=== PATIENT | female | born 1960 | race Caucasian/White ===

== ENCOUNTER 2018-12-08 18:02 | Inpatient (IN) | payer MEDICARE, MEDICAID ==
[~2018-12-08] VITALS: Ht 160 cm; Wt 46.7 kg
[2018-12-08] MEDS ORDERED: LORAZEPAM 0.5 MG TABLET PO PRN (18:30)
[2018-12-08] MEDS ORDERED: MAGNESIUM HYDROXIDE 30 ML UDC PO PRN (18:30)
[2018-12-08] MEDS ORDERED: MAG HYDROX/AL HYDROX/SIMETH 30 ML UDC PO PRN (18:30)
[2018-12-08 18:33] VITALS: BP 116/86
--- NOTE | 2018-12-08 18:49 | NUR ---
Pt. arrived in the unit via ambulance and transported via a gurney. Pt.on 5150 for DTS and GD, pt. is alert/ oriented x3, responsive to staff and cooperative. V/S taken, contraband done and Dr. Guillaume made aware of the admission and gave orders. Will endorse to the incoming nurse for the completion of the admission.
[2018-12-08 20:00] VITALS: BP 151/72
[2018-12-09] MEDS ORDERED: DOCU100C36 PO (00:31)
[2018-12-09] MEDS ORDERED: ALPR2TAB7 PO (00:31)
[2018-12-09] MEDS ORDERED: IBUP-1957 PO (00:31)
[2018-12-09] MEDS ORDERED: VENL150C2 PO (00:31)
[2018-12-09 08:00] VITALS: BP 149/70
[2018-12-09] MEDS ORDERED: TRAZ-214 PO (08:35)
[2018-12-09] MEDS ORDERED: ONDA4TAB5 PO (08:35)
[2018-12-09] MEDS ORDERED: GUAI5SYR4 PO (08:35)
[2018-12-09] MEDS ORDERED: ALBU18HF2 INH (08:35)
[2018-12-09 09:34] LABS: ALBUMIN 3.1 g/dL (3.4-5.0); BILIRUBIN,TOTAL 0.7 mg/dL (0.2-1.0); CALCIUM, SERUM 8.6 mg/dL (8.5-10.1); CREATININE 0.8 mg/dL (0.6-1.3); POTASSIUM 2.9 mmol/L (3.5-5.1); TOTAL PROTEIN, SERUM 6.6 g/dL (6.4-8.2)
[2018-12-09 09:43] LABS: CHOLESTEROL 191 mg/dL (<200); HDL CHOLESTEROL 71 mg/dL (40-60); LDL 104 mg/dL (0-99); TRIGLYCERIDES 72 mg/dL (30-150)
--- NOTE | 2018-12-09 10:01 | NUR ---
GPS RN NOTE: NOTIFIED ST[employer] SHOP MECHANIC REGARDING THE RESULT OF POTASSIUM = 2.9, V/S WNL, NO SOB, NO ACUTE DISTRESS, BREATHING EVEN AND UNLABORED, PATIENT ATE BREAKFAST, NO ORDER RECEIVED AT THIS TIME. WILL CONTINUE TO MONITOR [id number] FOR SAFETY
--- NOTE | 2018-12-09 10:04 | NUR ---
GPS RN NOTE: K[facility] ORDER RECEIVED NOTED AND CARRIED OUT.
[2018-12-09] MEDS: POTASSIUM CHLORIDE 10 MEQ TABLET.SA PO SCH ×3 (10:27→12:01)
[2018-12-09] MEDS ORDERED: IBUPROFEN 400 MG TABLET PO PRN (10:30)
[2018-12-09] MEDS ORDERED: ALBUTEROL FS 2.5 MG/3 ML VIAL.NEB NEB PRN (13:30)
[2018-12-09 16:19] VITALS: BP 120/78
--- NOTE | 2018-12-09 16:21 | NUR ---
Initial Discharge Plan: Pt currently resides in her home located at [address] [place] [address] with her roommate. Per pt, she would like to return once she is discharged from the hospital. TALIB will work with the pt and the MD regarding appropriate discharge planning. SW will form a safe and proper discharge.
[2018-12-09] MEDS ORDERED: OLANZAPINE 2.5 MG TABLET PO SCH (17:00)
--- NOTE | 2018-12-09 17:00 | NUR ---
GPS RN NOTE: RECEIVED AN ORDER FROM DR. RIOS OF EKG NOTED AND CARRIED OUT
[2018-12-09] MEDS: DIVALPROEX SODIUM 125 MG CAP.SPRINK PO SCH (17:19)
--- NOTE | 2018-12-09 17:31 | NUR ---
GPS RN NOTE: RECEIVED THE RESULT OF EKG AND REPORTED TO DR. RIOS WITH NO ORDER GIVEN NOTED
[2018-12-09] MEDS ORDERED: ALPRAZOLAM 0.5 MG TABLET PO SCH (18:00)
[2018-12-09 20:00] VITALS: BP 137/70
[2018-12-09] MEDS: TEMAZEPAM 7.5 MG CAPSULE PO PRN (21:50)
[2018-12-09] MEDS: OLANZAPINE 2.5 MG TABLET PO SCH (21:50)
[2018-12-09] MEDS: ATORVASTATIN 40 MG TABLET PO SCH (21:55)
[2018-12-10 08:00] VITALS: BP 131/71
[2018-12-10] MEDS: DIVALPROEX SODIUM 125 MG CAP.SPRINK PO SCH ×3 (08:50→16:43)
[2018-12-10] MEDS: DOCUSATE SODIUM 100 MG CAPSULE PO SCH (08:50)
[2018-12-10] MEDS: ALPRAZOLAM 0.25 MG TABLET PO SCH ×2 (08:55→12:17)
[2018-12-10 16:00] VITALS: BP 131/79
[2018-12-10 16:04] LABS: APPEARANCE,URINE SL CLOUDY (CLEAR); BILIRUBIN,URINE NEGATIVE (NEGATIVE); BLOOD, URINE NEGATIVE Ery/uL (NEGATIVE); COLOR,URINE YELLOW (YELLOW); KETONES,URINE NEGATIVE (NEGATIVE); LEUKOCYTE ESTERASE ,URINE 1+ (NEGATIVE); NITRITE, URINE NEGATIVE (NEGATIVE); PH,URINE 8.5 (5.0-8.0); PROTEIN,URINE NEGATIVE (NEGATIVE); UGLUCOSE NEGATIVE (NEGATIVE); UROBILINOGEN,URINE 0.2 EU/dL (0.2)
[2018-12-10 18:03] LABS: WBC,URINE 21-50 /HPF (0-3)
[2018-12-10 18:04] LABS: BACTERIA,URINE 3+ /HPF (None Seen)
[2018-12-10 20:00] VITALS: BP 138/72
[2018-12-10] MEDS: TEMAZEPAM 7.5 MG CAPSULE PO PRN (20:58)
[2018-12-10] MEDS: ATORVASTATIN 40 MG TABLET PO SCH (22:51)
[2018-12-10] MEDS: OLANZAPINE 2.5 MG TABLET PO SCH (22:51)
[2018-12-11] MEDS: ACETAMINOPHEN 325 MG TABLET PO PRN ×2 (04:32→11:05)
[2018-12-11 08:00] VITALS: BP 129/77
[2018-12-11] MEDS: DIVALPROEX SODIUM 125 MG CAP.SPRINK PO SCH ×3 (08:13→16:55)
[2018-12-11] MEDS: DOCUSATE SODIUM 100 MG CAPSULE PO SCH (08:13)
[2018-12-11 13:24] LABS: BASOPHILS # (AUTO) 0.1 /CMM (0.0-0.2); EOSINOPHILS % (AUTO) 7.1 % (0.0-6.0); HEMATOCRIT 37 % (33-45); HEMOGLOBIN 12.7 g/dL (11.5-14.8); LYMPHOCYTES # (AUTO) 1.9 /CMM (0.8-4.8); LYMPHOCYTES % (AUTO) 28.6 % (20.0-44.0); MEAN CORPUSCULAR HGB CONC 34 g/dl (31.0-36.0); MEAN CORPUSCULAR VOLUME 94 fL (82-100); MONOCYTES # (AUTO) 0.5 /CMM (0.1-1.30); MONOCYTES % (AUTO) 6.8 % (2.0-12.0); NEUTROPHILS # (AUTO) 3.7 /CMM (1.8-8.9); NEUTROPHILS % (AUTO) 56.5 % (43.0-81.0); PLATELET COUNT (AUTO) 168 /CMM (150-450); RED BLOOD CELL COUNT(AUTO) 3.96 MIL/uL (4.0-5.2); WHITE BLOOD COUNT (AUTO) 6.6 K/uL (4.3-11.0)
[2018-12-11 16:00] VITALS: BP 132/72
--- NOTE | 2018-12-11 18:25 | NUR ---
GPS RN NOTE: NEW T.O. ORDER FROM Dorian.Estrella CROWLEY KEFLEX 500 MG Q 12 HR X5 DAYS ORDER PLACED AND CARED OUT.
[2018-12-11 20:04] VITALS: BP 145/77
[2018-12-11] MEDS: OLANZAPINE 2.5 MG TABLET PO SCH (21:01)
[2018-12-11] MEDS: ATORVASTATIN 40 MG TABLET PO SCH (21:01)
[2018-12-11] MEDS: CEPHALEXIN MONOHYDRATE 250 MG CAPSULE PO SCH (21:02)
[2018-12-11] MEDS: TEMAZEPAM 7.5 MG CAPSULE PO PRN (21:35)
[2018-12-12 08:00] VITALS: BP 143/78
[2018-12-12] MEDS: CEPHALEXIN MONOHYDRATE 250 MG CAPSULE PO SCH ×2 (08:36→21:39)
[2018-12-12] MEDS: DIVALPROEX SODIUM 125 MG CAP.SPRINK PO SCH ×3 (08:36→17:15)
[2018-12-12] MEDS: DOCUSATE SODIUM 100 MG CAPSULE PO SCH (08:36)
--- NOTE | 2018-12-12 09:04 | NUR ---
GPS RN NOTES PATIENT REPORTS OF HAVING LOOSE BOWEL MOVEMENTS. DENIES HAVING DIARRHEA/LIQUID STOOLS. VERBALIZED, "MY BOWEL MOVEMENT IS TOO SOFT, I DONT NEED MY COLACE AT THIS TIME". STOOL SOFTENER HELD. WILL CONTINUE TO MONITOR
[2018-12-12] MEDS: ACETAMINOPHEN 325 MG TABLET PO PRN (11:18)
[2018-12-12 13:48] LABS: ALBUMIN 3.1 g/dL (3.4-5.0); BILIRUBIN,TOTAL 0.4 mg/dL (0.2-1.0); CALCIUM, SERUM 8.8 mg/dL (8.5-10.1); CREATININE 0.8 mg/dL (0.6-1.3); POTASSIUM 4.7 mmol/L (3.5-5.1); TOTAL PROTEIN, SERUM 6.7 g/dL (6.4-8.2)
[2018-12-12 16:00] VITALS: BP 126/81
[2018-12-12 20:30] VITALS: BP 129/79
[2018-12-12] MEDS: ATORVASTATIN 40 MG TABLET PO SCH (21:39)
[2018-12-12] MEDS: TEMAZEPAM 7.5 MG CAPSULE PO PRN (21:56)
[2018-12-12] MEDS ORDERED: OLANZAPINE 2.5 MG TABLET PO SCH (22:00)
--- NOTE | 2018-12-12 22:00 | NUR ---
RN NOTES, PATIENT COMPLAINING OF INABILITY TO SLEEP AND REQUESTING RESTORIL AT THIS TIME, RESTORIL ADMINISTERED ORDERED, WILL CONTINUE TO MONITOR CLOSELY.
[2018-12-13] MEDS: ACETAMINOPHEN 325 MG TABLET PO PRN ×2 (04:07→13:08)
[2018-12-13 07:36] LABS: CREATININE 0.8 mg/dL (0.6-1.3); MAGNESIUM 2.2 mg/dL (1.8-2.4); PHOSPHORUS 4.6 mg/dL (2.5-4.9); POTASSIUM 4.1 mmol/L (3.5-5.1)
[2018-12-13 07:57] LABS: BASOPHILS # (AUTO) 0.1 /CMM (0.0-0.2); EOSINOPHILS % (AUTO) 7.2 % (0.0-6.0); HEMATOCRIT 41 % (33-45); HEMOGLOBIN 13.7 g/dL (11.5-14.8); LYMPHOCYTES % (AUTO) 31.6 % (20.0-44.0); MEAN CORPUSCULAR HGB CONC 33 g/dl (31.0-36.0); MEAN CORPUSCULAR VOLUME 94 fL (82-100); MONOCYTES # (AUTO) 0.5 /CMM (0.1-1.30); MONOCYTES % (AUTO) 7.5 % (2.0-12.0); NEUTROPHILS # (AUTO) 3.3 /CMM (1.8-8.9); NEUTROPHILS % (AUTO) 52.7 % (43.0-81.0); PLATELET COUNT (AUTO) 164 /CMM (150-450); RED BLOOD CELL COUNT(AUTO) 4.36 MIL/uL (4.0-5.2); WHITE BLOOD COUNT (AUTO) 6.2 K/uL (4.3-11.0)
[2018-12-13 08:00] VITALS: BP 122/69
[2018-12-13] MEDS: DOCUSATE SODIUM 100 MG CAPSULE PO SCH ×2 (08:23→09:00)
[2018-12-13] MEDS: DIVALPROEX SODIUM 125 MG CAP.SPRINK PO SCH ×3 (08:23→17:46)
[2018-12-13] MEDS: CEPHALEXIN MONOHYDRATE 250 MG CAPSULE PO SCH ×2 (08:24→20:59)
--- NOTE | 2018-12-13 13:08 | NUR ---
given tylenol 650 mg po for headache.
--- NOTE | 2018-12-13 14:00 | NUR ---
SW attempted to call Matthew Zuñiga ([phone]) to help the pt cancel a court case but the phone lines redirection would not allow the SW to speak to someone. TALIB informed the pt that she would attempt again the following day.
[2018-12-13 16:00] VITALS: BP_SYST 114; BP_SYST 134; BP_DIAS 58; BP_DIAS 77
--- NOTE | 2018-12-13 19:30 | NUR ---
GPS RN NOTE PATIENT RECEIVED IN BED AWAKE AND CONVERSATIONAL. PATIENT AMIABLE. NO S/S OF PAIN OR DISCOMFORT AT THIS TIME. NO S/S OF ACUTE DISTRESS. PATIENT DENIES SOB/CHEST PAIN. PATIENT DENIES SI OR INTENTION TO HARM OTHERS. PATIENT IS MED COMPLIANT AND LOOKS A BIT UNKEPT. PATIENT AMBULATORY IN BED. PATIENT EDUCATED ON USE OF CALL FOSTER. SAFETY PRECAUTIONS IN PLACE. RN WILL CONTINUE TO MONITOR.
[2018-12-13 20:11] VITALS: BP 126/79
[2018-12-13] MEDS: ATORVASTATIN 40 MG TABLET PO SCH (20:59)
[2018-12-13] MEDS: OLANZAPINE 2.5 MG TABLET PO SCH (21:02)
[2018-12-14 08:00] VITALS: BP 122/78
[2018-12-14] MEDS: CEPHALEXIN MONOHYDRATE 250 MG CAPSULE PO SCH ×2 (08:43→20:25)
[2018-12-14] MEDS: DOCUSATE SODIUM 100 MG CAPSULE PO SCH (08:43)
[2018-12-14] MEDS: DIVALPROEX SODIUM 125 MG CAP.SPRINK PO SCH ×3 (08:43→21:44)
[2018-12-14] MEDS: ACETAMINOPHEN 325 MG TABLET PO PRN (12:09)
--- NOTE | 2018-12-14 13:30 | NUR ---
TALIB called the [facility] ([phone]) and was unable to speak to someone about the case that the pt wanted cancelled. TALIB informed the pt once again and provided her with the information in case she wanted to make an attempt.
[2018-12-14] MEDS: ENSURE ENLIVE CHOC 237 ML CAN PO SCH ×2 (15:00→17:37)
[2018-12-14 16:00] VITALS: BP 109/52
[2018-12-14 20:00] VITALS: BP 136/74
[2018-12-14] MEDS: ATORVASTATIN 40 MG TABLET PO SCH (21:44)
[2018-12-14] MEDS: OLANZAPINE 2.5 MG TABLET PO SCH (21:45)
[2018-12-14] MEDS: TEMAZEPAM 7.5 MG CAPSULE PO PRN (22:42)
[2018-12-15 08:00] VITALS: BP 149/67
[2018-12-15] MEDS: ENSURE ENLIVE CHOC 237 ML CAN PO SCH ×2 (08:00→17:00)
[2018-12-15] MEDS: DOCUSATE SODIUM 100 MG CAPSULE PO SCH (09:08)
[2018-12-15] MEDS: DIVALPROEX SODIUM 125 MG CAP.SPRINK PO SCH ×3 (09:08→20:28)
[2018-12-15] MEDS: CEPHALEXIN MONOHYDRATE 250 MG CAPSULE PO SCH ×2 (09:08→20:38)
[2018-12-15] MEDS ORDERED: LOPERAMIDE HCL (2 MG CAP) 2 MG CAPSULE PO PRN (15:30)
[2018-12-15 16:17] VITALS: BP 121/69
[2018-12-15 20:00] VITALS: BP 103/56
[2018-12-15] MEDS: OLANZAPINE 2.5 MG TABLET PO SCH (21:19)
[2018-12-15] MEDS: ATORVASTATIN 40 MG TABLET PO SCH (21:19)
[2018-12-15] MEDS: TEMAZEPAM 7.5 MG CAPSULE PO PRN (21:35)
[2018-12-16] MEDS: ACETAMINOPHEN 325 MG TABLET PO PRN ×2 (01:47→13:08)
[2018-12-16 08:00] VITALS: BP 118/74
[2018-12-16] MEDS: DOCUSATE SODIUM 100 MG CAPSULE PO SCH (08:24)
[2018-12-16] MEDS: ENSURE ENLIVE CHOC 237 ML CAN PO SCH (08:25)
[2018-12-16] MEDS: DIVALPROEX SODIUM 125 MG CAP.SPRINK PO SCH ×2 (08:25→13:10)
[2018-12-16] MEDS: CEPHALEXIN MONOHYDRATE 250 MG CAPSULE PO SCH (08:26)
--- NOTE | 2018-12-16 10:39 | NUR ---
TALIB faxed a referral for the pt to Dr. Guillaume's psychiatry office to the fax number: [phone].
--- NOTE | 2018-12-16 11:06 | NUR ---
FAXED NEW MEDICATIONS PRESCRIPTION TO PT'S PHARMACY ,
--- NOTE | 2018-12-16 15:09 | NUR ---
Discharge Note: Pt was discharged back to her home located at [address] [place] [id number]; ([phone]). Pt was transported via taxi around 1pm. Pts roommate, Caleb ([phone]), was notified of the discharge. Upon discharge, the pt appeared to be in a euthymic mood and presented with a calm affect. Pt denied both suicidal and homicidal ideation as well as auditory and visual hallucinations. Pt was referred to her psychiatrist from the unit, Dr. Guillaume located at [address] [address]; ; fax: [phone] and will follow up with her leather piece inspector, Dr[place] [address] [place] [address]; .
== END 2018-12-16 13:35 | disposition home or self-care (01) | DRG 885 ==
LOC: GPS 18:02
PROVIDERS: ADMIT Psychiatry & Neurology Psychosomatic Medicine; ATTEND Nurse Practitioner Acute Care
DX: F31.9 Bipolar disorder, unspecified (principal); E87.0 Hyperosmolality and hypernatremia; E44.1 Mild protein-calorie malnutrition; Z68.1 Body mass index [BMI] 19.9 or less, adult; R45.851 Suicidal ideations; N39.0 Urinary tract infection, site not specified; E87.6 Hypokalemia; E78.5 Hyperlipidemia, unspecified; R73.9 Hyperglycemia, unspecified; K30 Functional dyspepsia; T36.95XA Adverse effect of unspecified systemic antibiotic, initial encounter; Y92.89 Other specified places as the place of occurrence of the external cause; F41.9 Anxiety disorder, unspecified; F19.90 Other psychoactive substance use, unspecified, uncomplicated; J44.9 Chronic obstructive pulmonary disease, unspecified; R62.7 Adult failure to thrive
CPT/HCPCS: 36415; 80048-TC; 80053-TC; 80061-TC; 80164-TC; 81000-TC; 83735-TC; 84100-TC; 85025-TC; 87081-TC; 87086-TC